=== PATIENT | male | born 1940 | race Caucasian/White ===

== ENCOUNTER 2023-04-24 21:08 | Inpatient (IN) | payer MEDICARE ==
[~2023-04-24] VITALS: Ht 172.7 cm; Wt 74.4 kg
[2023-04-24 21:25] VITALS: BP 104/65; PULSE 125; RESP 26; TEMP 97.7; O2SAT 97
[2023-04-24] MEDS ORDERED: NACL 0.9% 2,000 ML IV ONE (22:10)
[2023-04-24] MEDS ORDERED: VANCOMYCIN 1,000 MG in DEXTROSE 5% 250 ML IV ONE (22:10)
[2023-04-24] MEDS ORDERED: MEROPENEM 1,000 MG in NACL 0.9% 50 ML IV ONE (22:10)
[2023-04-24] MEDS ORDERED: MEROPENEM 1,000 MG VIAL IV ONE (22:26)
[2023-04-24 22:46] LABS: BASOPHILS # (AUTO) 0.1 K/uL (0.00-0.22); BASOPHILS % (AUTO) 0.3 % (0.0-2.0); HEMOGLOBIN 15.8 g/dL (12.0-18.0); LYMPHOCYTES # (AUTO) 0.7 K/uL (2.0-11.5); LYMPHOCYTES % (AUTO) 2.6 % (20.5-51.1); MEAN CORPUSCULAR HEMOGLOBIN 31 pg (27-31); MEAN CORPUSCULAR HGB CONC 34 g/dL (33-37); MEAN CORPUSCULAR VOLUME 93.6 fL (80-94); NEUTROPHILS # (AUTO) 25.3 K/uL (1.8-7.7); NEUTROPHILS % (AUTO) 90.1 % (42.2-75.2); PLATELET COUNT (AUTO) 287 K/uL (140-450); RED BLOOD CELL COUNT(AUTO) 5.03 MIL/uL (4.20-6.10); RED CELL DISTRIBUTION WIDTH 16.1 % (11.6-13.7)
[2023-04-24 22:47] LABS: WHITE BLOOD COUNT (AUTO) 28.1 K/uL (4.8-10.8)
[2023-04-24 23:08] LABS: LACTIC ACID 2.9 mmol/L (0.4-2.0)
[2023-04-24 23:14] LABS: ALANINE AMINOTRANSFERASE 10 U/L (12-78); ALBUMIN 2.5 g/dL (3.4-5.0); ALKALINE PHOSPHATASE 123 U/L (50-136); ANION GAP 20.4 (8-16); ASPARTATE AMINOTRANSFERASE 11 U/L (15-37); CALCIUM 8.5 mg/dL (8.5-10.1); CHLORIDE 111 mmol/L (98-107); CREATININE 2.3 mg/dL (0.6-1.3); GLUCOSE 145 mg/dL (74-106); POTASSIUM 4.4 mmol/L (3.5-5.1); SODIUM SERUM 143 mmol/L (136-145); TOTAL BILIRUBIN 0.3 mg/dL (0.0-1.0); TOTAL PROTEIN, SERUM 6.7 g/dL (6.4-8.2); UREA NITROGEN, BLOOD 59 mg/dL (7-18)
[2023-04-24] MEDS ORDERED: VANCOMYCIN 1,000 MG VIAL ONE (23:17)
[2023-04-24 23:37] LABS: APPEARANCE,URINE CLOUDY (CLEAR); BILIRUBIN,URINE NEGATIVE (NEGATIVE); BLOOD, URINE 3+ (NEGATIVE); COLOR,URINE YELLOW (YELLOW); LEUKOCYTE ESTERASE ,URINE 1+ (NEGATIVE); NITRITE, URINE POSITIVE (NEGATIVE); PH,URINE 5.5 (5.0-9.0); PROTEIN,URINE 1+ (NEGATIVE); UGLUCOSE NEGATIVE (NEGATIVE); UROBILINOGEN,URINE 0.2 EU/dL (0.2 - 1)
[2023-04-24 23:39] LABS: BLOOD GAS PCO2 21.1 mmHg (35-45); BLOOD GAS PH 7.417 (7.35-7.45)
[2023-04-24 23:40] LABS: BLOOD GAS BASE EXCESS -8.5 mmol/L (-2.0-2.0); BLOOD GAS HCO3 13.3 mmol/L (22-26); BLOOD GAS PO2 160.8 mmHg (75-100)
[2023-04-24 23:40] LABS: BACTERIA,URINE >30 (MANY) /HPF (None Seen); MUCUS,URINE 1+ /LPF (None Seen); RBC,URINE 11-20 (MOD) /HPF (0-5); SQUAMOUS EPITHELIAL CELL,UR 0-3 (FEW) /LPF (0-3 (FEW))
[2023-04-24 23:41] LABS: BLOOD GAS O2 SAT% 99.1 % (92.0-98.5)
[2023-04-25] VITALS (18 sets, daily range): BP systolic 92–136; BP diastolic 48–88; PULSE 83–133; RESP 22–40; TEMP 94.9–96.8; O2SAT 96–99
[2023-04-25] MEDS ORDERED: VITB12 PO (00:15)
[2023-04-25] MEDS ORDERED: MEMA5TAB PO (00:15)
[2023-04-25] MEDS ORDERED: MEGE40SU4 PO (00:15)
[2023-04-25] MEDS ORDERED: ROB PO (00:15)
[2023-04-25] MEDS ORDERED: MIRT-120 PO (00:15)
[2023-04-25] MEDS ORDERED: MAGN400T7 PO (00:15)
[2023-04-25] MEDS ORDERED: POTA10TA70 PO (00:15)
[2023-04-25] MEDS ORDERED: IMO2 PO (00:15)
[2023-04-25] MEDS ORDERED: MAGN400S60 PO (00:15)
[2023-04-25] MEDS ORDERED: ACET-10509 PO (00:15)
[2023-04-25] MEDS ORDERED: MIRA25TE PO (00:15)
[2023-04-25] MEDS ORDERED: VITA-16 PO (00:15)
[2023-04-25] MEDS ORDERED: OMEP20EC11 PO (00:15)
[2023-04-25] MEDS ORDERED: MULT-1328 PO (00:15)
[2023-04-25] MEDS ORDERED: TUBE5SOL28 TD (00:15)
[2023-04-25] MEDS ORDERED: NA P135N RC (00:15)
[2023-04-25] MEDS ORDERED: NUTR887L PO (00:15)
[2023-04-25] MEDS ORDERED: ASCO500T95 PO (00:15)
[2023-04-25] MEDS ORDERED: BISA-218 RC (00:15)
[2023-04-25] MEDS ORDERED: DOCU-299 PO (00:15)
[2023-04-25] MEDS ORDERED: BUS5 PO (00:15)
[2023-04-25] MEDS ORDERED: DABI150C PO (00:15)
[2023-04-25] MEDS ORDERED: ALEN70TA85 PO (00:15)
[2023-04-25] MEDS ORDERED: ACETAMINOPHEN 325 MG SUPP RC ONE ×2 (01:50→01:55)
[2023-04-25] MEDS ORDERED: ZOLPIDEM 5 MG TAB PO PRN (03:45)
[2023-04-25] MEDS ORDERED: POTASSIUM CHLORIDE 10 MEQ TABER PO PRN ×2 (03:45→08:00)
[2023-04-25] MEDS ORDERED: guaiFENesin DM 200/20 MG-10 ML 10 ML UDC PO PRN (03:45)
[2023-04-25] MEDS ORDERED: DOCUSATE SODIUM 100 MG GELCAP PO PRN ×2 (03:45→08:00)
[2023-04-25] MEDS ORDERED: NACL 0.9% 1,000 ML IV SCH ×2 (03:45→07:45)
[2023-04-25] MEDS ORDERED: ACETAMINOPHEN 325 MG TAB PO PRN ×2 (03:45→08:00)
[2023-04-25] MEDS ORDERED: ONDANSETRON 4 MG/2 ML VIAL IM/IVP PRN (03:45)
[2023-04-25] MEDS ORDERED: NACL 0.9% 1,000 ML IV ONE (03:50)
[2023-04-25] MEDS ORDERED: VANCOMYCIN 1GM/DEXT 5% PREMIX 200 ML IV SCH (05:00)
[2023-04-25] MEDS ORDERED: PIPERACILLIN/TAZOBACTAM 3.375 GM in DEXTROSE 5% 50 ML IV SCH (05:00)
[2023-04-25] MEDS ORDERED: PIPERACILLIN/TAZOBACTAM 2.25 GM VIAL IV ONE (05:59)
[2023-04-25] MEDS ORDERED: PIPERACILLIN/TAZOBACTAM 2.25 GM in DEXTROSE 5% 50 ML IV SCH (06:00)
[2023-04-25 07:34] LABS: ANION GAP 22.4 (8-16); CALCIUM 7.1 mg/dL (8.5-10.1); CARBON DIOXIDE 11.7 mmol/L (21-32); CHLORIDE 115 mmol/L (98-107); CREATININE 2.3 mg/dL (0.6-1.3); GLUCOSE 130 mg/dL (74-106); POTASSIUM 4.1 mmol/L (3.5-5.1); SODIUM SERUM 145 mmol/L (136-145)
[2023-04-25 07:36] LABS: UREA NITROGEN, BLOOD 61 mg/dL (7-18)
[2023-04-25] MEDS ORDERED: ONDANSETRON 4 MG/2 ML VIAL IVP PRN (08:00)
[2023-04-25] MEDS ORDERED: VANCOMYCIN PER PHARMACY MC PRN (08:00)
[2023-04-25] MEDS ORDERED: DEXT 5% /NACL 0.9% 1,000 ML IV SCH (08:00)
[2023-04-25] MEDS ORDERED: ZOLPIDEM 10 MG TAB PO PRN (08:00)
[2023-04-25] MEDS ORDERED: VANCOMYCIN 750 MG in DEXTROSE 5% 250 ML IV SCH (09:00)
[2023-04-25] MEDS ORDERED: PANTOPRAZOLE 40 MG TABEC PO SCH (09:00)
[2023-04-25] MEDS ORDERED: VANCOMYCIN PER PHARMACY MC SCH (09:00)
[2023-04-25 09:06] LABS: HEMOGLOBIN 14.2 g/dL (12.0-18.0); MEAN CORPUSCULAR HEMOGLOBIN 31 pg (27-31); MEAN CORPUSCULAR HGB CONC 33 g/dL (33-37); MEAN CORPUSCULAR VOLUME 94.1 fL (80-94); PLATELET COUNT (AUTO) 242 K/uL (140-450); RED BLOOD CELL COUNT(AUTO) 4.57 MIL/uL (4.20-6.10); RED CELL DISTRIBUTION WIDTH 16.6 % (11.6-13.7); WHITE BLOOD COUNT (AUTO) 22.3 K/uL (4.8-10.8)
[2023-04-25 09:28] LABS: BASOPHILS % (MANUAL) 0 % (0-2); BLASTS, MANUAL % 0 % (0-0); EOSINOPHILS % (MANUAL) 0 % (0-4); LYMPHOCYTES % (MANUAL) 6 % (20-46); METAMYELOCYTES % 0 % (0-0); MONOCYTES % (MANUAL) 7 % (5-12); MYELOCYTES % 0 % (0-0); OTHER CELLS,MANUAL % 0 (0-0); PROMYELOCYTES % 0 % (0-0)
[2023-04-25] MEDS: NOREPINEPHRINE 4 MG in DEXTROSE 5% 250 ML IV PRN ×2 (10:11→22:22)
[2023-04-25] MEDS: DEXT 5% / NACL 0.45% 1,000 ML IV SCH ×2 (12:14→22:19)
[2023-04-25] MEDS: PANTOPRAZOLE 40 MG INJ VIAL IVP SCH (13:21)
[2023-04-25] MEDS: PIPERACILLIN/TAZOBACTAM 2.25 GM in DEXTROSE 5% 50 ML IV SCH ×2 (13:28→20:34)
[2023-04-25 17:43] LABS: LACTIC ACID 4.4 mmol/L (0.4-2.0)
[2023-04-25] MEDS: ALBUTEROL SULFATE/IPRATROPIU 3 ML SOL IH PRN (22:58)
[2023-04-25] MEDS: LORazepam 2 MG/ML VIAL IVP PRN (23:45)
[2023-04-26] VITALS (33 sets, daily range): BP systolic 98–147; BP diastolic 45–78; PULSE 120–132; RESP 20–65; TEMP 96.4–97.6; O2SAT 96–99
[2023-04-26] MEDS: ALBUTEROL SULFATE/IPRATROPIU 3 ML SOL IH PRN ×2 (04:12→07:04)
[2023-04-26] MEDS: PIPERACILLIN/TAZOBACTAM 2.25 GM in DEXTROSE 5% 50 ML IV SCH ×3 (04:31→21:20)
[2023-04-26] MEDS: DEXT 5% / NACL 0.45% 1,000 ML IV SCH (06:10)
[2023-04-26 06:18] LABS: HEMATOCRIT 42.1 % (36-52); HEMOGLOBIN 13.9 g/dL (12.0-18.0); MEAN CORPUSCULAR HEMOGLOBIN 31 pg (27-31); MEAN CORPUSCULAR HGB CONC 33 g/dL (33-37); MEAN CORPUSCULAR VOLUME 94.4 fL (80-94); PLATELET COUNT (AUTO) 193 K/uL (140-450); RED BLOOD CELL COUNT(AUTO) 4.46 MIL/uL (4.20-6.10); WHITE BLOOD COUNT (AUTO) 18.5 K/uL (4.8-10.8)
[2023-04-26 06:33] LABS: ALANINE AMINOTRANSFERASE 14 U/L (12-78); ALBUMIN 1.5 g/dL (3.4-5.0); ALKALINE PHOSPHATASE 87 U/L (50-136); ANION GAP 16.4 (8-16); ASPARTATE AMINOTRANSFERASE 36 U/L (15-37); CALCIUM 6.1 mg/dL (8.5-10.1); CARBON DIOXIDE 15.2 mmol/L (21-32); CHLORIDE 114 mmol/L (98-107); CREATININE 1.5 mg/dL (0.6-1.3); GLUCOSE 141 mg/dL (74-106); POTASSIUM 3.6 mmol/L (3.5-5.1); SODIUM SERUM 142 mmol/L (136-145); TOTAL BILIRUBIN 0.2 mg/dL (0.0-1.0); TOTAL PROTEIN, SERUM 4.7 g/dL (6.4-8.2); UREA NITROGEN, BLOOD 60 mg/dL (7-18)
[2023-04-26 07:56] LABS: BASOPHILS % (MANUAL) 0 % (0-2); BLASTS, MANUAL % 0 % (0-0); EOSINOPHILS % (MANUAL) 0 % (0-4); LYMPHOCYTES % (MANUAL) 6 % (20-46); METAMYELOCYTES % 0 % (0-0); MONOCYTES % (MANUAL) 7 % (5-12); MYELOCYTES % 0 % (0-0); OTHER CELLS,MANUAL % 0 (0-0); PROMYELOCYTES % 0 % (0-0)
[2023-04-26] MEDS: NOREPINEPHRINE 4 MG in DEXTROSE 5% 250 ML IV PRN (09:35)
[2023-04-26] MEDS: VASOPRESSIN 20 UNITS in NACL 0.9% 250 ML IV SCH ×2 (09:40→22:47)
[2023-04-26] MEDS: PANTOPRAZOLE 40 MG INJ VIAL IVP SCH (09:43)
[2023-04-26] MEDS: SODIUM BICARBONATE 8.4% 100 MEQ in DEXTROSE 5% 1,000 ML IV SCH ×2 (09:44→20:46)
[2023-04-26] MEDS: ALBUTEROL SULFATE/IPRATROPIU 3 ML SOL IH SCH ×2 (13:51→19:45)
[2023-04-26] MEDS: Z-GUARD PASTE TP SCH (14:53)
[2023-04-26] MEDS ORDERED: metroNIDAZOLE 500 MG/NS PREMIX 100 ML IV SCH (21:00)
[2023-04-26] MEDS ORDERED: VASOPRESSIN 20 UNITS/ML VIAL ONE (22:44)
[2023-04-27] VITALS (34 sets, daily range): BP systolic 94–145; BP diastolic 48–87; PULSE 108–126; RESP 14–35; TEMP 96.1–97.8; O2SAT 90–99
[2023-04-27] MEDS: ALBUTEROL SULFATE/IPRATROPIU 3 ML SOL IH SCH ×4 (01:53→19:28)
[2023-04-27] MEDS: SODIUM BICARBONATE 8.4% 100 MEQ in DEXTROSE 5% 1,000 ML IV SCH ×4 (04:54→21:13)
[2023-04-27] MEDS: PIPERACILLIN/TAZOBACTAM 2.25 GM in DEXTROSE 5% 50 ML IV SCH ×3 (05:40→20:38)
[2023-04-27 06:05] LABS: HEMATOCRIT 36.7 % (36-52); HEMOGLOBIN 12.4 g/dL (12.0-18.0); MEAN CORPUSCULAR HEMOGLOBIN 31 pg (27-31); MEAN CORPUSCULAR HGB CONC 34 g/dL (33-37); MEAN CORPUSCULAR VOLUME 91.9 fL (80-94); PLATELET COUNT (AUTO) 137 K/uL (140-450); RED BLOOD CELL COUNT(AUTO) 3.99 MIL/uL (4.20-6.10); RED CELL DISTRIBUTION WIDTH 16.2 % (11.6-13.7); WHITE BLOOD COUNT (AUTO) 12.2 K/uL (4.8-10.8)
[2023-04-27 06:32] LABS: ALANINE AMINOTRANSFERASE 12 U/L (12-78); ALBUMIN 1.1 g/dL (3.4-5.0); ALKALINE PHOSPHATASE 81 U/L (50-136); ANION GAP 15.9 (8-16); ASPARTATE AMINOTRANSFERASE 26 U/L (15-37); CHLORIDE 107 mmol/L (98-107); CREATININE 1.2 mg/dL (0.6-1.3); GLUCOSE 147 mg/dL (74-106); SODIUM SERUM 138 mmol/L (136-145); TOTAL BILIRUBIN 0.3 mg/dL (0.0-1.0); UREA NITROGEN, BLOOD 54 mg/dL (7-18)
[2023-04-27 06:33] LABS: CALCIUM 5.3 mg/dL (8.5-10.1); POTASSIUM 2.9 mmol/L (3.5-5.1)
[2023-04-27 06:53] LABS: BASOPHILS % (MANUAL) 0 % (0-2); EOSINOPHILS % (MANUAL) 0 % (0-4); LYMPHOCYTES % (MANUAL) 4 % (20-46); MONOCYTES % (MANUAL) 10 % (5-12); PLATELET ESTIMATE SLIGHTLY DECREASED
[2023-04-27] MEDS: KCL 20 MEQ IN 100 mL PREMIX 200 ML IV PRN (07:06)
[2023-04-27] MEDS: metroNIDAZOLE 500 MG/NS PREMIX 100 ML IV SCH ×2 (08:48→17:01)
[2023-04-27] MEDS: NOREPINEPHRINE 4 MG in DEXTROSE 5% 250 ML IV PRN (08:50)
[2023-04-27] MEDS: PANTOPRAZOLE 40 MG INJ VIAL IVP SCH (08:52)
[2023-04-27] MEDS: VASOPRESSIN 20 UNITS in NACL 0.9% 250 ML IV SCH (08:55)
[2023-04-27] MEDS ORDERED: VANCOMYCIN 1,000 MG in DEXTROSE 5% 250 ML IV SCH (09:00)
[2023-04-27] MEDS: MAG SULF 2000 MG/WATER PREMIX 50 ML IV PRN (09:59)
[2023-04-27] MEDS ORDERED: POTASSIUM CHLORIDE 10 MEQ TABER PO SCH (11:42)
[2023-04-27] MEDS: Z-GUARD PASTE TP SCH (15:20)
[2023-04-27] MEDS: LORazepam 2 MG/ML VIAL IVP PRN (21:23)
[2023-04-27] MEDS ORDERED: GENTAMICIN PER PHARMACY MC PRN (23:35)
[2023-04-28] VITALS (29 sets, daily range): BP systolic 93–138; BP diastolic 46–107; PULSE 111–128; RESP 23–36; TEMP 95.5–98.2; O2SAT 90–98
[2023-04-28] MEDS: ALBUTEROL SULFATE/IPRATROPIU 3 ML SOL IH SCH ×5 (01:00→18:51)
[2023-04-28] MEDS: metroNIDAZOLE 500 MG/NS PREMIX 100 ML IV SCH ×4 (01:20→20:57)
[2023-04-28 04:05] LABS: BASOPHILS % (AUTO) 0.1 % (0.0-2.0); EOSINOPHILS # (AUTO) 0.1 K/uL (0-0.4); EOSINOPHILS % (AUTO) 0.8 % (0.0-4.0); HEMATOCRIT 38.2 % (36-52); HEMOGLOBIN 12.8 g/dL (12.0-18.0); LYMPHOCYTES # (AUTO) 0.8 K/uL (2.0-11.5); LYMPHOCYTES % (AUTO) 6.9 % (20.5-51.1); MEAN CORPUSCULAR HEMOGLOBIN 31 pg (27-31); MEAN CORPUSCULAR HGB CONC 34 g/dL (33-37); MEAN CORPUSCULAR VOLUME 90.9 fL (80-94); MONOCYTES # (AUTO) 0.5 K/uL (0.8-1.0); MONOCYTES % (AUTO) 4.5 % (1.7-9.3); NEUTROPHILS # (AUTO) 10.1 K/uL (1.8-7.7); NEUTROPHILS % (AUTO) 87.7 % (42.2-75.2); PLATELET COUNT (AUTO) 115 K/uL (140-450); RED BLOOD CELL COUNT(AUTO) 4.21 MIL/uL (4.20-6.10); WHITE BLOOD COUNT (AUTO) 11.5 K/uL (4.8-10.8)
[2023-04-28] MEDS: PIPERACILLIN/TAZOBACTAM 2.25 GM in DEXTROSE 5% 50 ML IV SCH ×3 (04:14→20:57)
[2023-04-28] MEDS: SODIUM BICARBONATE 8.4% 100 MEQ in DEXTROSE 5% 1,000 ML IV SCH ×2 (04:47→11:55)
[2023-04-28 04:56] LABS: ALANINE AMINOTRANSFERASE 14 U/L (12-78); ALBUMIN 1.1 g/dL (3.4-5.0); ALKALINE PHOSPHATASE 85 U/L (50-136); ASPARTATE AMINOTRANSFERASE 20 U/L (15-37); CARBON DIOXIDE 24.2 mmol/L (21-32); CREATININE 1.1 mg/dL (0.6-1.3); GLUCOSE 121 mg/dL (74-106); TOTAL BILIRUBIN 0.4 mg/dL (0.0-1.0); TOTAL PROTEIN, SERUM 3.9 g/dL (6.4-8.2); UREA NITROGEN, BLOOD 46 mg/dL (7-18)
[2023-04-28] MEDS ORDERED: GENTAMICIN IV SCH (05:00)
[2023-04-28] MEDS ORDERED: DEXTROSE 5% IV SCH (05:00)
[2023-04-28 05:03] LABS: ANION GAP 13.7 (8-16); CHLORIDE 99 mmol/L (98-107); SODIUM SERUM 134 mmol/L (136-145)
[2023-04-28 05:09] LABS: CALCIUM 5.4 mg/dL (8.5-10.1); POTASSIUM 2.9 mmol/L (3.5-5.1)
[2023-04-28] MEDS: KCL 20 MEQ IN 100 mL PREMIX 200 ML IV PRN ×2 (05:40→08:09)
[2023-04-28] MEDS ORDERED: CALCIUM GLUCONATE 10% 1,000 MG in NACL 0.9% 50 ML IV ONE (06:35)
[2023-04-28] MEDS ORDERED: CALCIUM GLUC 1 GM/50 mL NS BAG 50 ML IV SCH (08:00)
[2023-04-28] MEDS: PANTOPRAZOLE 40 MG INJ VIAL IVP SCH (09:19)
[2023-04-28] MEDS: GENTAMICIN 100 MG in DEXTROSE 5% 100 ML IV SCH ×2 (09:20→22:09)
[2023-04-28] MEDS: Z-GUARD PASTE TP SCH (13:30)
[2023-04-28] MEDS: FUROSEMIDE 40 MG/4 ML VIAL IVP SCH (14:09)
[2023-04-28] MEDS ORDERED: TPN PER PHARMACY MC PRN (16:05)
[2023-04-28] MEDS: DEXT 5% / NACL 0.9% 1,000 ML IV SCH (16:37)
[2023-04-28] MEDS ORDERED: GENTAMICIN 80 MG/2 ML VIAL ONE (21:19)
[2023-04-29] VITALS (33 sets, daily range): BP systolic 82–127; BP diastolic 43–67; PULSE 60–141; RESP 14–35; TEMP 95.9–98.2; O2SAT 80–100
[2023-04-29] MEDS: ALBUTEROL SULFATE/IPRATROPIU 3 ML SOL IH SCH ×4 (00:44→19:01)
[2023-04-29] MEDS: DEXT 5% / NACL 0.9% 1,000 ML IV SCH ×2 (02:10→04:47)
[2023-04-29] MEDS: PIPERACILLIN/TAZOBACTAM 2.25 GM in DEXTROSE 5% 50 ML IV SCH ×3 (04:32→20:20)
[2023-04-29] MEDS: metroNIDAZOLE 500 MG/NS PREMIX 100 ML IV SCH ×3 (04:32→20:19)
[2023-04-29 05:25] LABS: BASOPHILS % (AUTO) 0.1 % (0.0-2.0); EOSINOPHILS # (AUTO) 0.1 K/uL (0-0.4); EOSINOPHILS % (AUTO) 0.4 % (0.0-4.0); HEMATOCRIT 39.1 % (36-52); HEMOGLOBIN 13.2 g/dL (12.0-18.0); LYMPHOCYTES # (AUTO) 0.8 K/uL (2.0-11.5); LYMPHOCYTES % (AUTO) 5.4 % (20.5-51.1); MEAN CORPUSCULAR HEMOGLOBIN 31 pg (27-31); MEAN CORPUSCULAR HGB CONC 34 g/dL (33-37); MEAN CORPUSCULAR VOLUME 90.9 fL (80-94); MONOCYTES # (AUTO) 0.6 K/uL (0.8-1.0); NEUTROPHILS # (AUTO) 12.6 K/uL (1.8-7.7); NEUTROPHILS % (AUTO) 90.1 % (42.2-75.2); PLATELET COUNT (AUTO) 120 K/uL (140-450); RED CELL DISTRIBUTION WIDTH 16.5 % (11.6-13.7)
[2023-04-29 05:33] LABS: MAGNESIUM 1.7 mg/dL (1.8-2.4); PHOSPHORUS 2.5 mg/dL (2.5-4.9)
[2023-04-29 05:39] LABS: ALANINE AMINOTRANSFERASE 11 U/L (12-78); ALBUMIN 1.1 g/dL (3.4-5.0); ALKALINE PHOSPHATASE 96 U/L (50-136); ASPARTATE AMINOTRANSFERASE 17 U/L (15-37); CARBON DIOXIDE 26.9 mmol/L (21-32); CHLORIDE 102 mmol/L (98-107); CREATININE 0.9 mg/dL (0.6-1.3); GLUCOSE 122 mg/dL (74-106); SODIUM SERUM 136 mmol/L (136-145); TOTAL BILIRUBIN 0.4 mg/dL (0.0-1.0); TOTAL PROTEIN, SERUM 3.9 g/dL (6.4-8.2); UREA NITROGEN, BLOOD 35 mg/dL (7-18)
[2023-04-29 06:12] LABS: CALCIUM 5.9 mg/dL (8.5-10.1); POTASSIUM 2.9 mmol/L (3.5-5.1)
[2023-04-29] MEDS: KCL 20 MEQ IN 100 mL PREMIX 200 ML IV PRN ×2 (06:59→15:31)
[2023-04-29] MEDS ORDERED: CALCIUM GLUC 1 GM/50 mL NS BAG 50 ML IV SCH (08:38)
[2023-04-29] MEDS: FUROSEMIDE 40 MG/4 ML VIAL IVP SCH ×2 (09:02→20:15)
[2023-04-29] MEDS: PANTOPRAZOLE 40 MG INJ VIAL IVP SCH (09:02)
[2023-04-29] MEDS: GENTAMICIN 100 MG in DEXTROSE 5% 100 ML IV SCH (09:15)
[2023-04-29] MEDS ORDERED: DEXTROSE 5% IV SCH ×4 (11:00)
[2023-04-29] MEDS ORDERED: MAGNESIUM SULFATE IV SCH ×4 (11:00)
[2023-04-29 12:38] LABS: MAGNESIUM 1.7 mg/dL (1.8-2.4); POTASSIUM 3.5 mmol/L (3.5-5.1)
[2023-04-29] MEDS: Z-GUARD PASTE TP SCH (13:00)
[2023-04-29] MEDS ORDERED: POTASSIUM CHL 20MEQ/D5-NS 1,000 ML IV SCH (13:25)
[2023-04-29] MEDS ORDERED: KCL 20 MEQ IN 100 mL PREMIX 200 ML IV SCH (14:03)
[2023-04-29] MEDS ORDERED: BLOOD GLUCOSE MONITORING 1 DEV DEV FS SCH (15:50)
[2023-04-29] MEDS: DEXMEDETOMIDINE HCL 400 MCG in NACL 0.9% 96 ML IV PRN (17:43)
[2023-04-29] MEDS ORDERED: INSULIN LISPRO SLIDING SCALE 100 UNITS/ML VIAL SUBQ PRN (20:00)
[2023-04-29] MEDS: MULTIVITAMIN-12 10 ML in DEXTROSE 50% 600 ML, AMINO ACIDS 8.5% 600 ML IV SCH ×3 (20:14)
[2023-04-29] MEDS: BLOOD GLUCOSE MONITORING 1 DEV DEV MC SCH (20:19)
[2023-04-29] MEDS: NOREPINEPHRINE 4 MG in DEXTROSE 5% 250 ML IV PRN (22:47)
[2023-04-30] VITALS (40 sets, daily range): BP systolic 78–160; BP diastolic 44–112; PULSE 91–135; RESP 22–39; TEMP 97.3–97.9; O2SAT 95–100
[2023-04-30] MEDS: ALBUTEROL SULFATE/IPRATROPIU 3 ML SOL IH SCH ×4 (00:09→19:16)
[2023-04-30] MEDS ORDERED: DEXMEDETOMIDINE HCL 100 MCG/ML 2 ML VIAL IV ONE (04:21)
[2023-04-30] MEDS: DEXMEDETOMIDINE HCL 400 MCG in NACL 0.9% 96 ML IV PRN (04:30)
[2023-04-30] MEDS: PIPERACILLIN/TAZOBACTAM 2.25 GM in DEXTROSE 5% 50 ML IV SCH ×3 (04:31→20:11)
[2023-04-30] MEDS: metroNIDAZOLE 500 MG/NS PREMIX 100 ML IV SCH ×3 (04:31→20:11)
[2023-04-30 05:02] LABS: BASOPHILS % (AUTO) 0.2 % (0.0-2.0); EOSINOPHILS # (AUTO) 0.1 K/uL (0-0.4); EOSINOPHILS % (AUTO) 0.5 % (0.0-4.0); HEMATOCRIT 37.2 % (36-52); HEMOGLOBIN 12.4 g/dL (12.0-18.0); LYMPHOCYTES # (AUTO) 0.8 K/uL (2.0-11.5); LYMPHOCYTES % (AUTO) 4.8 % (20.5-51.1); MEAN CORPUSCULAR HEMOGLOBIN 31 pg (27-31); MEAN CORPUSCULAR HGB CONC 33 g/dL (33-37); MEAN CORPUSCULAR VOLUME 91.5 fL (80-94); MONOCYTES # (AUTO) 0.7 K/uL (0.8-1.0); MONOCYTES % (AUTO) 4.3 % (1.7-9.3); NEUTROPHILS % (AUTO) 90.2 % (42.2-75.2); PLATELET COUNT (AUTO) 140 K/uL (140-450); RED BLOOD CELL COUNT(AUTO) 4.07 MIL/uL (4.20-6.10); RED CELL DISTRIBUTION WIDTH 16.1 % (11.6-13.7); WHITE BLOOD COUNT (AUTO) 16.6 K/uL (4.8-10.8)
[2023-04-30 05:22] LABS: ALANINE AMINOTRANSFERASE 8 U/L (12-78); ALKALINE PHOSPHATASE 100 U/L (50-136); ANION GAP 10.8 (8-16); ASPARTATE AMINOTRANSFERASE 15 U/L (15-37); CALCIUM 6.6 mg/dL (8.5-10.1); CARBON DIOXIDE 26.5 mmol/L (21-32); CHLORIDE 105 mmol/L (98-107); GLUCOSE 143 mg/dL (74-106); POTASSIUM 3.3 mmol/L (3.5-5.1); SODIUM SERUM 139 mmol/L (136-145); TOTAL BILIRUBIN 0.5 mg/dL (0.0-1.0); TOTAL PROTEIN, SERUM 3.8 g/dL (6.4-8.2); UREA NITROGEN, BLOOD 33 mg/dL (7-18)
[2023-04-30] MEDS: BLOOD GLUCOSE MONITORING 1 DEV DEV MC SCH ×4 (06:00→18:12)
[2023-04-30] MEDS: PANTOPRAZOLE 40 MG INJ VIAL IVP SCH (09:24)
[2023-04-30] MEDS: GENTAMICIN 150 MG in DEXTROSE 5% 100 ML IV SCH (09:24)
[2023-04-30] MEDS: FUROSEMIDE 40 MG/4 ML VIAL IVP SCH ×2 (09:24→20:11)
[2023-04-30] MEDS: KCL 20 MEQ IN 100 mL PREMIX 200 ML IV PRN (10:06)
[2023-04-30] MEDS: Z-GUARD PASTE TP SCH (13:27)
[2023-04-30] MEDS: NOREPINEPHRINE 4 MG in DEXTROSE 5% 250 ML IV PRN (14:40)
[2023-04-30] MEDS ORDERED: MULTIVITAMIN IV SCH ×3 (20:00)
[2023-04-30] MEDS ORDERED: AMINO ACIDS 8.5% IV SCH ×3 (20:00)
[2023-04-30] MEDS: MULTIVITAMIN-12 10 ML in DEXTROSE 50% 600 ML, AMINO ACIDS 8.5% 600 ML IV SCH ×3 (20:00)
[2023-04-30] MEDS ORDERED: DEXTROSE IV SCH ×3 (20:00)
[2023-05-01] VITALS (28 sets, daily range): BP systolic 95–139; BP diastolic 49–98; PULSE 80–136; RESP 5–38; TEMP 97.7–98.3; O2SAT 61–100
[2023-05-01] MEDS ORDERED: AMIODARONE 150 MG in DEXTROSE 5% 100 ML IV ONE (00:10)
[2023-05-01] MEDS ORDERED: AMIODARONE 150 MG/3 ML VIAL IV ONE (00:14)
[2023-05-01] MEDS ORDERED: AMIODARONE 450 MG/9 ML VIAL IV ONE (00:14)
[2023-05-01] MEDS: BLOOD GLUCOSE MONITORING 1 DEV DEV MC SCH ×3 (00:32→12:00)
[2023-05-01] MEDS: AMIODARONE 450 MG in DEXTROSE 5% 250 ML IV SCH ×2 (00:45→09:57)
[2023-05-01] MEDS: ALBUTEROL SULFATE/IPRATROPIU 3 ML SOL IH SCH ×3 (01:06→13:00)
[2023-05-01] MEDS: PIPERACILLIN/TAZOBACTAM 2.25 GM in DEXTROSE 5% 50 ML IV SCH (05:05)
[2023-05-01] MEDS: metroNIDAZOLE 500 MG/NS PREMIX 100 ML IV SCH (05:05)
[2023-05-01 05:21] LABS: BASOPHILS % (AUTO) 0.2 % (0.0-2.0); EOSINOPHILS % (AUTO) 0.2 % (0.0-4.0); HEMATOCRIT 39.5 % (36-52); HEMOGLOBIN 13.2 g/dL (12.0-18.0); LYMPHOCYTES # (AUTO) 0.5 K/uL (2.0-11.5); LYMPHOCYTES % (AUTO) 2.9 % (20.5-51.1); MEAN CORPUSCULAR HEMOGLOBIN 31 pg (27-31); MEAN CORPUSCULAR HGB CONC 34 g/dL (33-37); MEAN CORPUSCULAR VOLUME 91.9 fL (80-94); MONOCYTES # (AUTO) 0.6 K/uL (0.8-1.0); MONOCYTES % (AUTO) 3.6 % (1.7-9.3); NEUTROPHILS # (AUTO) 15.2 K/uL (1.8-7.7); NEUTROPHILS % (AUTO) 93.1 % (42.2-75.2); PLATELET COUNT (AUTO) 150 K/uL (140-450); RED BLOOD CELL COUNT(AUTO) 4.29 MIL/uL (4.20-6.10); RED CELL DISTRIBUTION WIDTH 16.4 % (11.6-13.7); WHITE BLOOD COUNT (AUTO) 16.3 K/uL (4.8-10.8)
[2023-05-01 06:20] LABS: ALANINE AMINOTRANSFERASE 9 U/L (12-78); ALBUMIN 1.1 g/dL (3.4-5.0); ALKALINE PHOSPHATASE 132 U/L (50-136); ANION GAP 11.7 (8-16); ASPARTATE AMINOTRANSFERASE 18 U/L (15-37); CALCIUM 6.9 mg/dL (8.5-10.1); CARBON DIOXIDE 25.4 mmol/L (21-32); CHLORIDE 104 mmol/L (98-107); GLUCOSE 146 mg/dL (74-106); POTASSIUM 3.1 mmol/L (3.5-5.1); SODIUM SERUM 138 mmol/L (136-145); TOTAL BILIRUBIN 0.4 mg/dL (0.0-1.0); TOTAL PROTEIN, SERUM 4.1 g/dL (6.4-8.2); UREA NITROGEN, BLOOD 36 mg/dL (7-18)
[2023-05-01 06:28] LABS: MAGNESIUM 1.7 mg/dL (1.8-2.4); PHOSPHORUS 3.3 mg/dL (2.5-4.9)
[2023-05-01] MEDS: KCL 20 MEQ IN 100 mL PREMIX 200 ML IV PRN (08:15)
[2023-05-01] MEDS: DEXMEDETOMIDINE HCL 400 MCG in NACL 0.9% 96 ML IV PRN (09:30)
[2023-05-01] MEDS: FUROSEMIDE 40 MG/4 ML VIAL IVP SCH (09:59)
[2023-05-01] MEDS ORDERED: POTASSIUM CHLORIDE 10 MEQ TABER PO PRN (10:00)
[2023-05-01] MEDS ORDERED: MAG SULF 2000 MG/WATER PREMIX 50 ML IV PRN (10:00)
[2023-05-01] MEDS: GENTAMICIN 150 MG in DEXTROSE 5% 100 ML IV SCH (10:00)
[2023-05-01] MEDS: PANTOPRAZOLE 40 MG INJ VIAL IVP SCH (10:08)
[2023-05-01] MEDS: MAG SULF 2000 MG/WATER PREMIX 50 ML IV PRN (10:43)
[2023-05-01] MEDS ORDERED: POTASSIUM CHLORIDE 10 MEQ TABER PO ONE (11:30)
[2023-05-01] MEDS ORDERED: VANCOMYCIN 500 MG VIAL PO SCH (12:00)
[2023-05-01] MEDS ORDERED: LORazepam 2 MG/ML VIAL IVP PRN (12:40)
[2023-05-01] MEDS: MORPHINE SULFATE 50 MG in NACL 0.9% 45 ML IV PRN ×2 (13:28→17:37)
[2023-05-01] MEDS ORDERED: MORPHINE SULFATE 100 MG in NACL 0.9% 100 ML IV PRN (17:15)
[2023-05-01] MEDS: MORPHINE SULFATE 100 MG in NACL 0.9% 90 ML IV PRN (20:42)
[2023-05-02] VITALS (12 sets, daily range): BP systolic 79–99; BP diastolic 37–49; PULSE 63–89; RESP 5–12; TEMP 95.9; O2SAT 77–100
[2023-05-02] MEDS: MORPHINE SULFATE 100 MG in NACL 0.9% 90 ML IV PRN ×2 (02:02→06:55)
== END 2023-05-02 11:07 | DRG 871 ==
LOC: MED 21:08 → MTU 04-25 03:47 → MIC 04-25 03:47
PROVIDERS: ADMIT Student in an Organized Health Care Education/Training Program; ATTEND Student in an Organized Health Care Education/Training Program
PROC: 5A09457 Assistance with Respiratory Ventilation, 24-96 Consecutive Hours, Continuous Positive Airway Pressure (ICD-10-PCS; principal; 2023-04-29)
DX: A41.9 Sepsis, unspecified organism (principal); J69.0 Pneumonitis due to inhalation of food and vomit; R65.21 Severe sepsis with septic shock; N17.0 Acute kidney failure with tubular necrosis; J96.01 Acute respiratory failure with hypoxia; N39.0 Urinary tract infection, site not specified; E87.20 Acidosis, unspecified; J44.0 Chronic obstructive pulmonary disease with (acute) lower respiratory infection; E44.0 Moderate protein-calorie malnutrition; G93.40 Encephalopathy, unspecified; A04.72 Enterocolitis due to Clostridium difficile, not specified as recurrent; G30.9 Alzheimer's disease, unspecified; N40.0 Benign prostatic hyperplasia without lower urinary tract symptoms; E78.5 Hyperlipidemia, unspecified; E87.6 Hypokalemia; K21.9 Gastro-esophageal reflux disease without esophagitis; I46.9 Cardiac arrest, cause unspecified; B96.5 Pseudomonas (aeruginosa) (mallei) (pseudomallei) as the cause of diseases classified elsewhere; Y95 Nosocomial condition; F32.A Depression, unspecified; F41.9 Anxiety disorder, unspecified; Z66 Do not resuscitate; F02.80 Dementia in other diseases classified elsewhere, unspecified severity, without behavioral disturbance, psychotic disturbance, mood disturbance, and anxiety; Z88.5 Allergy status to narcotic agent; Z79.899 Other long term (current) drug therapy; Z86.711 Personal history of pulmonary embolism; Z86.16 Personal history of COVID-19; Z68.24 Body mass index [BMI] 24.0-24.9, adult
CPT/HCPCS: 36415; 36600; 71045; 80048; 80053; 80170; 80202; 81001; 82803; 82948; 83036; 83605; 83735; 84100; 84132; 84478; 85025; 87040; 87070; 87081; 87086; 92526; 93971; 94640; 94660; 96365; 99291; A9153; C9113; J0282; J0610; J1580; J1644; J1815; J1940; J2060; J2185; J2270; J2405; J2543; J3370; J3475; J3480; J3490; J7030; J7060; Q0092